=== PATIENT | male | born 1965 | race Two or more races ===

== ENCOUNTER → 2020-02-10 | Day surgery (SDC) | payer OTHER ==
[~2020-02-10] MED LIST: ACETAMINOPHEN/CODEINE 300MG - 30MG TAB ONE; CRESTOR10 MG PO; DEXAMETHASONE SOD PHOS INJ 4 MG/ML VIAL ONE; FENTANYL CITRATE/PF 100MCG/2 ML INJ ONE; GENTAMICIN 120MG/NS 100ML 100 ML ONE; IOPAMIDOL 300MG/ML 50ML INFUS..BTL IV ONE; LIDOCAINE HCL 2% LOCAL INJ 5 ML SDV VIAL INJ ONE; METFORMIN HCL500 MG PO; ONDANSETRON HCL INJ 2MG/ML 2ML 2 MG/ML VIAL ONE; PROPOFOL IV EMULSION 10 MG/ML 20 ML VIAL ONE; SEVOFLURANE INHAL SOLN 250 ML PEN BTL ONE
--- OUTSIDE RECORDS SUMMARY | 2020-02-10 06:10 | XMS REPORT ---
Author Author [facility] Address Unknown Phone Unavailable Care Team Providers Care Process Supervisor Name Role Phone Unavailable Unavailable Problems This patient has no known problems. Allergies, Adverse Reactions, Alerts This patient has no known allergies or adverse reactions. Medications This patient has no known medications.
--- OUTSIDE RECORDS SUMMARY | 2020-02-10 06:10 | XMS REPORT | Summary of Care ---
Author Author [facility] Organization [facility] Address Unknown Phone Unavailable Care Team Providers Care Supervisor Special Education Name Role Phone Courtney Castillo MD PCP Reason for Referral * MRI/CAT Scan (STAT) Referred By Contact Referred To Contact Status Reason Specialty Diagnoses / Procedures Shubham Delatorre MD [address] [address] New Request Diagnostic Diagnoses Radiology Right flank pain P rocedures CT Abdomen/Pelvis W/O Contrast Reason for Visit * Reason Comments Abdominal Pain Diarrhea * Auth/Cert Referred By Contact Referred To Contact Status Reason Specialty Diagnoses / Procedures [facility] Emergency Dept [address] [place] [id number] Emergency Medicine Encounter Details Care Team Description Date Type Department Shubham Delatorre MD [address] [address] Right ureteral stone (Primary Dx); Right flank pain 02/01/2020 Emergency [facility]Emergency Department [address] [place] [address] Allergies No Known Allergiesdocumented as of this encounter (statuses as of 02/01/2020) Medications End Date Status Medication Sig Dispensed Refills Start Date Active ketorolac 10 mg Take 1 tablet 30 tablet 0 tabletIndications: Right by mouth 0 flank pain, Right every 6 (six) ureteral stone hours as needed for Pain (scale 4-6). 02/08/2020 Active cephALEXin (KEFLEX) 500 Take 1 14 capsule 0 mg capsuleIndications: capsule by 0 Right flank pain, Right mouth 2 (two) ureteral stone times daily for 7 days. Active acetaminophen-codeine Take 1 tablet 15 tablet 0 (TYLENOL-CODEINE #3) by mouth 0 300-30 mg every 4 tabletIndications: Right (four) hours flank pain, Right as needed for ureteral stone Pain (scale 7-10). Active tamsulosin 0.4 mg 24 hr Take 1 14 capsule 0 capsuleIndications: Right capsule by 0 flank pain, Right mouth at ureteral stone bedtime. documented as of this encounter (statuses as of 02/01/2020) Active Problems No known active problemsdocumented as of this encounter (statuses as of 02/01/2020) Social History Date Tobacco Use Types Packs/Day Years Used Never Assessed Sex Assigned at Date Recorded Not on file Industry Job Start Date Occupation Not on file Not on file Not on file Travel End Travel History Travel Start No recent travel history available. documented as of this encounter Last Filed Vital Signs Reading Time Taken Comments Vital Sign 128/74 02/01/2020 12:44 PM CDT Blood Pressure 71 02/01/2020 12:44 PM CDT Pulse 36.8 C (98.3 F) 02/01/2020 12:44 PM CDT Temperature 16 02/01/2020 12:44 PM CDT Respiratory Rate 100% 02/01/2020 12:44 PM CDT Oxygen Saturation - - Inhaled Oxygen Concentration 74.8 kg (165 lb) 02/01/2020 10:37 AM CDT Weight - - Height - - Body Mass Index documented in this encounter Discharge Instructions * Instructions* Shubham Delatorre MD - 02/01/2020 Return to ER for fever, chills, vomiting, worsening pain * Attachments The following attachments cannot be sent through Care Everywhere.* Kidney Stones, Understanding (Brazilian) * Kidney Stones,Identifying (Brazilian) * Are You at Risk, Kidney Stones (Brazilian) * Tamsulosin capsules (Brazilian) * Ketorolac tablets (Brazilian) documented in this encounter Plan of Treatment Health Maintenance Due Date Last Done Comments HEPATITIS C (HCV) SCREEN 1965 DTaP,Tdap,and Td Vaccines 1976 (1 - Tdap) COLONOSCOPY 2015 Zoster Recombinant 2015 Vaccine (SHINGRIX) (1 of 2) INFLUENZA VACCINE (#1) 2019 PNEUMOCOCCAL 0-64 YEARS Aged Out No longer eligible based COMBINED SERIES on patient's age to complete this topic documented as of this encounter Procedures Comments Procedure Name Priority Date/Time Associated Diagnosis URINALYSIS STAT 02/01/2020 Right flank pain 11:[address] ABDOMEN PELVIS WO STAT 02/01/2020 Right flank pain CONTRAST 11:21 AM CDT CBC WITH DIFFERENTIAL STAT 02/01/2020 Right flank pain 11:06 AM CDT CBC WITH DIFFERENTIAL Routine 02/01/2020 Right flank pain 11:06 AM CDT BASIC METABOLIC PANEL STAT 02/01/2020 Right flank pain (NA, K, CL, CO2, GLUCOSE, 11:06 AM CDT BUN, CREATININE, CA) HEPATIC FUNCTION PANEL STAT 02/01/2020 Right flank pain (65819) (ALB,T.PRO,BILI 11:06 AM CDT T,BU/BC,ALT,AST,ALK PHOS) documented in this encounter Results * Urinalysis (02/01/2020 11:36 AM CDT) APPEARANCE Clear Clear [facility] COLOR Straw (A) Yellow [facility] PH 7.0 4.8 - 8.0 [facility] SP GRAVITY 1.002 (L) 1.003 - 1.030 [facility] GLU U QUAL Normal Normal [facility] BLOOD 3+ (A) Negative [facility] KETONES Negative Negative [facility] PROTEIN Negative Negative [facility] UROBILIN Normal Normal [facility] BILIRUBIN Negative Negative [facility] NITRITE Negative Negative [facility] [place] Negative Negative [facility] RBC/HPF 4 (H) 0 - 3 HPF [facility] WBC/HPF 1 0 - 5 HPF [facility] BACTERIA Few (A) Negative [facility] Specimen Urine - URINE, CLEAN CATCH Performing Organization Address City/State/Zipcode Phone Number [facility] CLIA: [id number], [address] [place] [address] [facility] * CT Abdomen/Pelvis W/O Contrast (02/01/2020 11:21 AM CDT) Specimen Impressions Performed At Partially obstructing proximal right ureteral calculus measuring up to 6 mm PACS/VR/DOSE in size with mild upstream hydroureter and hydronephrosis. Preliminary Report Dictated by Resident: Manny Pino MD., have reviewed this study and agree with the above report. Narrative Performed At EXAM: CT ABDOMEN PELVIS WO CONTRAST PACS/VR/DOSE HISTORY: 54 years-old Male Flank pain, stone disease suspected also RLQ abd tenderness COMPARISON: None TECHNIQUE AND FINDINGS: Contiguous axial imaging from the level of the lung bases through the pubic symphysis was performed. Coronal and sagittal reconstructions were obtained. Auto mA and/or iterative reconstruction were used to reduce radiation dose. FINDINGS: Limited evaluation of the abdominal and pelvic organs without the IV contrast administration. LOWER THORAX: Mild dependent atelectasis. LIVER: No focal hepatic lesions within limits of unenhanced technique. GALLBLADDER AND BILIARY TREE: Contracted gallbladder without radiopaque cholelithiasis. No pericholecystic free fluid. SPLEEN: No splenomegaly. PANCREAS: No ductal dilation or masses. ADRENAL GLANDS: No adrenal nodules. KIDNEYS: Proximal right ureteral calculus measuring 5.2 x 5.8 mm with mild periureteral stranding and mild upstream hydroureteronephrosis. No other calculi identified. PERITONEUM AND RETROPERITONEUM: No free air or fluid. GI TRACT: No dilation or abnormal wall thickening. Mild rectosigmoid diverticulosis without diverticulitis. Normal appendix. LYMPH NODES: No lymphadenopathy. PELVIS/BLADDER: Urinary bladder is normal for the degree of distention. No urinary bladder calculi. VESSELS: Limited evaluation without intravenous contrast. No appreciable atherosclerotic calcification within the abdominal aorta. Mild calcifications are seen within bilateral common iliac arteries. BONES AND SOFT TISSUES: No suspicious lytic or sclerotic bony lesions. A bony island noted in the T12 vertebral body. Technically indeterminate sclerotic lesion within the left iliac bone measures 9 mm (3:92). Dextrocurvature of the thoracolumbar spine with mild multilevel degenerative disease is noted. Procedure Note [facility], Radiant Results Inft User - 02/01/2020 12:29 PM CDT EXAM: CT ABDOMEN PELVIS WO CONTRAST HISTORY: 54 years-old Male Flank pain, stone disease suspected also RLQ abd tenderness COMPARISON: None TECHNIQUE AND FINDINGS: Contiguous axial imaging from the level of the lung bases through the pubic symphysis was performed. Coronal and sagittal reconstructions were obtained. Auto mA and/or iterative reconstruction were used to reduce radiation dose. FINDINGS: Limited evaluation of the abdominal and pelvic organs without the IV contrast administration. LOWER THORAX: Mild dependent atelectasis. LIVER: No focal hepatic lesions within limits of unenhanced technique. GALLBLADDER AND BILIARY TREE: Contracted gallbladder without radiopaque cholelithiasis. No pericholecystic free fluid. SPLEEN: No splenomegaly. PANCREAS: No ductal dilation or masses. ADRENAL GLANDS: No adrenal nodules. KIDNEYS: Proximal right ureteral calculus measuring 5.2 x 5.8 mm with mild periureteral stranding and mild upstream hydroureteronephrosis. No other calculi identified. PERITONEUM AND RETROPERITONEUM: No free air or fluid. GI TRACT: No dilation or abnormal wall thickening. Mild rectosigmoid diverticulosis without diverticulitis. Normal appendix. LYMPH NODES: No lymphadenopathy. PELVIS/BLADDER: Urinary bladder is normal for the degree of distention. No urinary bladder calculi. VESSELS: Limited evaluation without intravenous contrast. No appreciable atherosclerotic calcification within the abdominal aorta. Mild calcifications are seen within bilateral common iliac arteries. BONES AND SOFT TISSUES: No suspicious lytic or sclerotic bony lesions. A bony island noted in the T12 vertebral body. Technically indeterminate sclerotic lesion within the left iliac bone measures 9 mm (3:92). Dextrocurvature of the thoracolumbar spine with mild multilevel degenerative disease is noted. IMPRESSION Partially obstructing proximal right ureteral calculus measuring up to 6 mm in size with mild upstream hydroureter and hydronephrosis. Preliminary Report Dictated by Resident: Manny Pino MD., have reviewed this study and agree with the above report. Performing Organization Address City/State/Zipcode Phone Number PACS/VR/DOSE * CBC WITH DIFFERENTIAL (02/01/2020 11:06 AM CDT) WBC 13.88 (H) 4.20 - 10.70 [facility] 10*3/L [facility] RBC 4.85 4.26 - 5.52 10*6/L [facility] HGB 13.8 12.2 - 16.4 g/dL [facility] HCT 39.5 38.4 - 49.3 % [facility] MCV 81.4 (L) 81.7 - 95.6 fL [facility] MCH 28.5 26.1 - 32.7 pg [facility] MCHC 34.9 31.2 - 35.0 g/dL [facility] RDW-SD 41.2 38.5 - 51.6 fL [facility] RDW-CV 13.9 12.1 - 15.4 % [facility] PLT 291 150 - 328 10*3/L [facility] MPV 9.9 9.8 - 13.0 fL [facility] NRBC/100 WBC 0.0 0.0 - 10.0 /100 WBCs [facility] NRBC x10^3 <0.01 10*3/L [facility] GRAN MAT (NEUT) 85.4 % [facility] % [facility] IMM GRAN % 0.20 % [facility] LYMPH % 10.3 % [facility] MONO % 3.7 % [facility] EOS % 0.0 % [facility] BASO % 0.4 % [facility] GRAN MAT 11.84 (H) 1.99 - 6.95 10*3/uL [facility] x10^3(ANC) [facility] IMM GRAN x10^3 0.03 0.00 - 0.06 10*3/uL [facility] LYMPH x10^3 1.43 1.09 - 3.23 10*3/uL [facility] MONO x10^3 0.52 0.36 - 1.02 10*3/uL [facility] EOS x10^3 <0.03 (L) 0.06 - 0.53 10*3/uL [facility] BASO x10^3 0.06 0.01 - 0.09 10*3/uL [facility] Specimen Blood - ARM, LEFT Performing Organization Address City/[facility] Centercode Phone Number [facility] CLIA: [id number], [address] [place] [address] [facility] * Hepatic Function Panel (ALB, T.PRO, BILI T, BU/BC, ALT, AST, ALK PHOS) (02/01/2020 11:06 AM CDT) TOTAL BILI 1.1 0.1 - 1.1 mg/dL [facility] BILI UNCON 1.0 0.1 - 1.1 mg/dL [facility] BILI CONJ 0.0 0.0 - 0.3 mg/dL [facility] T PROTEIN 7.4 6.3 - 8.2 g/dL [facility] ALBUMIN 4.6 3.5 - 5.0 g/dL [facility] ALK PHOS 73 34 - 122 U/L [facility] ALTv 15 5 - 50 U/L [facility] AST(SGOT) 22 13 - 40 U/L [facility] Specimen Blood - ARM, LEFT Performing Organization Address City/[facility]/Zipcode Phone Number [facility] CLIA: [id number], [address] [place] [address] [facility] * Basic Metabolic Panel (NA, K, CL, CO2, GLUCOSE, BUN, CREATININE, CA) (02/01/2020 11:06 AM CDT) NA 137 135 - 145 mmol/L [facility] K 4.2Comment: Slight hemolysis 3.5 - 5.0 mmol/L [facility] CL 100 98 - 108 mmol/L [facility] CO2 TOTAL 27 23 - 31 mmol/L [facility] AGAP 10 2 - 16 [facility] BUN 14Comment: Slight hemolysis 7 - 23 mg/dL [facility] GLUCOSE 113 (H) 70 - 110 mg/dL [facility] CREATININE 0.88 0.60 - 1.25 mg/dL [facility] CALCIUM 9.4 8.6 - 10.6 mg/dL [facility] eGFR 90.2 mL/min/1.73m2 [facility] Calculation [facility] eGFR 109.4 mL/min/1.73m2 [facility] Calculation [facility] ([facility] Finnish) Specimen Blood - ARM, LEFT Narrative Performed At Association of Glomerular Filtration Rate (GFR) and Staging of Kidney Disease* [facility] + + + + [facility] | GFR (mL/min/1.73 m2) | With Kidney Damage | Without Kidney Damage CAMPUS + + + + | >90 | Stage one | Normal + + + + | 60-89 | Stage two | Decreased GFR + + + + | 30-59 | Stage three | Stage three + + + + | 15-29 | Stage four | Stage four + + + + | <15 (or dialysis) | Stage five | Stage five + + + + *Each stage assumes the associated GFR level has been in effect for at least three months. Stages 1 to 5, with or without kidney disease, indicate chronic kidney disease. Notes: Determination of stages one and two (with eGFR >59mL/min/1.73 m2) requires estimation of kidney damage for at least three months as defined by structural or functional abnormalities of the kidney, manifested by either: Pathological abnormalities or Markers of kidney damage (including abnormalities in the composition of the blood or urine or abnormalities in imaging tests). Performing Organization Address City/State/Zipcode Phone Number [facility] CLIA: [id number], [address] [place] [address] [facility] documented in this encounter Visit Diagnoses Diagnosis Right ureteral stone - Primary Calculus of ureter Right flank pain Abdominal pain, unspecified site documented in this encounter Administered Medications Action Date Dose Rate Site Medication Order MAR Action 02/01/2020 11:16 AM CDT 30 mg ketorolac (TORADOL) injection 30 mg Given 30 mg, Slow IV Push, ONCE, 1 dose, Thu02/01/20 at 1200, Routine, bridge crew member approving Restricted medication: SHUBHAM DELATORRE 02/01/2020 11:16 AM CDT 1,000 mL 999 mL/hr NaCl 0.9% (NS) bolus infusion 1,000 mL New Bag at 999 mL/hr, 1,000 mL, IV Infusion, ONCE, 1 dose, Thu02/01/20 at 1100, HUA documented in this encounter Insurance Type Payer Benefit Subscriber ID Effective Phone Address Plan / Dates Group PP RIKY WHEELER [id number] 2020- [id number]-CONTRAC Present IDRIS documented as of this encounter"
[2020-02-10 09:50] VITALS: BP 114/75
--- NOTE | 2020-02-10 12:49 | Operative Report ---
DATE OF PROCEDURE: 02/10/2020 SURGEON: eMmo Fajardo MD PREOPERATIVE DIAGNOSES: 1. Right ureteral calculus. 2. Right hydronephrosis. POSTOPERATIVE DIAGNOSES: 1. Right ureteral calculus. 2. Right hydronephrosis. PROCEDURES: 1. Cystourethroscopy with insertion of a right indwelling stent (entirely separate procedure for hydronephrosis). 2. Staged right-sided shock wave lithotripsy (entirely separate procedure for right ureteral calculus). 3. Supervision of fluoroscopy. 4. Interpretation of retrograde pyelography. ANESTHESIA: General. ESTIMATED BLOOD LOSS: Minimal. COMPLICATIONS: None. INDICATIONS: Mr. Dolan is a 54-year-old male with severe sharp flank pain, went to an outside emergency room, where he was found to have a large proximal ureteral calculi with blockage of the kidney. He and I had a long discussion about alternatives, risks, and benefits. I explicitly discussed the fact that this is condition of hydronephrosis and ureteral calculi, and is medically necessary to immediately proceed with the procedure to correct this ureteral calculus and hydronephrosis without immediate performance of the said surgery. The patient will be at risk for serious adverse medical consequences or . The patient voiced understanding of the options, alternatives, the risks, and benefits including doing nothing, shock wave lithotripsy, ureteroscopy, percutaneous surgery or open surgery. He voiced explicit understanding that stent is a temporary indwelling device and it must be removed and a failure to do so could lead to encrustation, infection, inflammation, atrophy, loss of the kidney and , he elected to proceed. PROCEDURE IN DETAIL: After informed consent was obtained, the patient was taken to the operative suite, placed in supine on the operating table, underwent general anesthesia by the Anesthesia Service, and placed in dorsal lithotomy position and sterilely prepped and draped for cystoscopy. A 21-Hebrew cystoscope was inserted per urethra and normal urethra was noted. Panendoscopy of bladder revealed no tumors, no stones. Right retrograde pyelogram was performed revealing a very large 8 mm proximal ureteral calculus. The ureteral stent was deployed with a coil in the renal pelvis and a coil in the bladder. The shock wave lithotripsy was brought into view. The stone was obliterated. The treatment was performed per the treatment report. The patient tolerated the procedure well and was transferred to the recovery room in excellent condition. Supervision of fluoroscopy and interpretation of retrograde pyelography: I was present for the entire procedure and supervised fluoroscopy. There was no radiologist present. Attention was turned towards the right ureteral orifice, which was catheterized. Retrograde pyelogram was performed revealing delicate distal ureter proximal 8 x 8 mm ureteral calculus with proximal hydronephrosis. Postoperative views on the right side revealed stent in adequate position. MD GABY Pablo/MODL /[id number]
== END | disposition home or self-care (01) ==
LOC: OR 06:07
PROVIDERS: ATTEND Urology
DX: N13.2 Hydronephrosis with renal and ureteral calculous obstruction (principal); E11.9 Type 2 diabetes mellitus without complications; I10 Essential (primary) hypertension; Z79.84 Long term (current) use of oral hypoglycemic drugs; Z84.1 Family history of disorders of kidney and ureter
CPT/HCPCS: 36415; 50590; 82948; 93005; C2617; J1100; J1580; J2001; J2405; J3010

== ENCOUNTER → 2020-03-09 | Day surgery (SDC) | payer OTHER ==
[~2020-03-09] MED LIST changes: -ACETAMINOPHEN/CODEINE 300MG - 30MG TAB ONE; -DEXAMETHASONE SOD PHOS INJ 4 MG/ML VIAL ONE; +MIDAZOLAM HCL 2 MG/2 ML VIAL ONE; -ONDANSETRON HCL INJ 2MG/ML 2ML 2 MG/ML VIAL ONE
[2020-03-09 07:03] LABS: ANION GAP 9.7 mmol/L (8-16); BLOOD UREA NITROGEN 16 mg/dL (7-26); BUN/CREATININE RATIO 18 (6-25); CALCIUM 9.1 mg/dL (8.4-10.2); CARBON DIOXIDE 26 mmol/L (22-29); CHLORIDE 108 mmol/L (98-107); CREATININE, SERUM 0.89 mg/dL (0.72-1.25); EST GLOMERULAR FILTRATION RATE > 60 ML/MIN (60-); GLUCOSE 109 mg/dL (74-118); POTASSIUM 3.7 mmol/L (3.5-5.1); SODIUM 140 mmol/L (136-145)
[2020-03-09 08:50] VITALS: BP 112/73
--- NOTE | 2020-03-09 08:57 | Operative Report ---
DATE OF PROCEDURE: 03/09/2020 SURGEON: Memo Fajardo MD PREOPERATIVE DIAGNOSIS: Right ureteral calculus, right ureteral stent. POSTOPERATIVE DIAGNOSIS: Right ureteral calculus, right ureteral stent. PROCEDURES: 1. Staged cystoscopy with right ureteral stent removal (complicated secondary to encrustation and anatomy). 2. Staged right-sided ureteroscopy with laser lithotripsy (entirely separate procedure for cleanup of large obstructing mid ureteral stone). 3. Supervision of fluoroscopy. 4. Interpretation of retrograde pyelography. ANESTHESIA: General. ESTIMATED BLOOD LOSS: Minimal. COMPLICATIONS: None. INDICATIONS FOR PROCEDURE: Mr. Dolan is a very pleasant 54-year-old male, with a history of an obstructing right ureteral calculus. He and I had a long discussion of alternatives, risks, and benefits including doing nothing, stent removal, ureteroscopy, repeat lithotripsy. The patient voiced understanding of the options, alternatives, the risks, and benefits and elected to proceed. PROCEDURE IN DETAIL: After informed consent was obtained, the patient was taken to the operative suite, placed supine on the operating table, underwent general anesthesia by the Anesthesia Service, placed in dorsal position, sterilely prepped and draped for cystoscopy. A 21-Barbadian cystoscope was inserted per urethra normal urethra was noted. Panendoscopy of the bladder revealed no tumors, no stones. Stent was seen extruding through the right ureteral orifice and it was grasped and removed. A guidewire was inserted alongside the stent and seen to coil at the level of the pelvis. Dual-lumen was inserted. A 2nd safety wire was introduced. Flexible ureteroscope was advanced over the wire to the level of stone utilizing 365 micron laser fiber, the stone was obliterated in fragments, which could no longer seen under fluoroscopy. The collecting system was then mapped. Safety wire removed. The bladder drained. The patient was awakened from anesthesia and transported to the recovery room in excellent condition. Supervision of fluoroscopy: I was present for entire procedure and supervised fluoroscopy for stent removal and ureteroscopy portion. There was no radiologist present. Memo Fajardo MD ES/MODL /[id number]
== END | disposition home or self-care (01) ==
LOC: OR 05:45
PROVIDERS: ATTEND Urology
DX: N20.1 Calculus of ureter (principal); Z46.6 Encounter for fitting and adjustment of urinary device; N13.30 Unspecified hydronephrosis; N40.1 Benign prostatic hyperplasia with lower urinary tract symptoms; N13.8 Other obstructive and reflux uropathy; N39.0 Urinary tract infection, site not specified; E11.9 Type 2 diabetes mellitus without complications; E78.5 Hyperlipidemia, unspecified; I10 Essential (primary) hypertension; Z79.84 Long term (current) use of oral hypoglycemic drugs
CPT/HCPCS: 36415; 76000; 80048; 82948; C1758; C1769; J1580; J2001; J2250; J3010